=== PATIENT | male | born 1995 | race African-American/Black ===

== ENCOUNTER 2019-02-02 13:48 | Emergency (ER) | payer OTHER ==
[~2019-02-02] VITALS: Ht 188 cm; Wt 104.5 kg
[2019-02-02 13:49] VITALS: TEMP 98.6
[2019-02-02] MEDS ORDERED: ZYRTEC5 MG PO (14:19)
[2019-02-02 15:18] VITALS: BP 149/74; PULSE 77
== END 2019-02-02 15:20 | disposition home or self-care (01) ==
LOC: COL.ER 13:48
DX: S86.811A Strain of other muscle(s) and tendon(s) at lower leg level, right leg, initial encounter (principal); Y93.61 Activity, american tackle football
CPT/HCPCS: J1170; J2405; J7030; Q9967